=== PATIENT | male | born 1940 | race Caucasian/White ===

== ENCOUNTER → 2017-11-28 | Outpatient (CLI) | payer MEDICARE, OTHER ==
[~2017-11-28] MED LIST: ALPR.5 PO; AMIO200 PO; ATOR40TA PO; Amaryl1 MG; Aspir 8181 MG PO; CENTRUM SILVER1 EAC1 PO; CLOP75; CLOP75 PO; COLE1 PO; CYAN500 PO; DEXILANT30 MG; ESCI20 PO; ESOM20 PO; FARXIGA10 MG; GABA300 PO; HYDACE10B PO; HYOS0.375T PO; Janumet 50-5001 EACH PO; LEVSOD50 PO; LOSA50 PO; MAGOXI400 PO; MELA3 PO; METO25ER; METO50ER PO; NITR.4SL SL; Norco 5-325 Ta1 EACH PO; PYRI100 PO; ROSU10TA PO; TAMS.4ER; TAMS.4ER PO; TOCO400 PO
== END ==
LOC: PLD 13:49 → LAB SHORT 13:49
DX: D48.5 Neoplasm of uncertain behavior of skin (principal)
CPT/HCPCS: 88305

== ENCOUNTER → 2017-12-26 | Outpatient (CLI) | payer MEDICARE, OTHER | LOC: PLD → LAB SHORT | DX: D22.5 Melanocytic nevi of trunk (principal); C44.519 Basal cell carcinoma of skin of other part of trunk; C44.612 Basal cell carcinoma of skin of right upper limb, including shoulder; C44.319 Basal cell carcinoma of skin of other parts of face; C44.619 Basal cell carcinoma of skin of left upper limb, including shoulder | CPT/HCPCS: 88305 ==

== ENCOUNTER → 2018-03-06 | Outpatient (CLI) | payer MEDICARE, OTHER ==
[~2018-03-06] MED LIST changes: -Amaryl1 MG; -FARXIGA10 MG
== END ==
LOC: LAB SHORT 07:36 → PLD 07:36
DX: C44.02 Squamous cell carcinoma of skin of lip (principal)
CPT/HCPCS: 88305

== ENCOUNTER 2018-07-04 07:40 | Day surgery (SDC) | payer MEDICARE, OTHER ==
[~2018-07-04] VITALS: Ht 167.6 cm; Wt 96.3 kg
[2018-07-04] MEDS ORDERED: Amaryl1 MG (08:24)
[2018-07-04] MEDS ORDERED: FARXIGA10 MG (08:24)
== END 2018-07-04 09:52 | disposition home or self-care (01) ==
LOC: ORSCSDS 07:40
PROVIDERS: Internal Medicine Gastroenterology
PROC: 0D758ZZ Dilation of Esophagus, Via Natural or Artificial Opening Endoscopic (ICD-10-PCS; principal; 2018-07-04 09:00)
PROC: 0DB58ZX Excision of Esophagus, Via Natural or Artificial Opening Endoscopic, Diagnostic (ICD-10-PCS; principal; 2018-07-04 09:00)
DX: R13.14 Dysphagia, pharyngoesophageal phase (principal); K44.9 Diaphragmatic hernia without obstruction or gangrene; J32.0 Chronic maxillary sinusitis; I25.10 Atherosclerotic heart disease of native coronary artery without angina pectoris; I47.1 Supraventricular tachycardia; I10 Essential (primary) hypertension; I47.2 Ventricular tachycardia; F41.9 Anxiety disorder, unspecified; E11.9 Type 2 diabetes mellitus without complications; Z79.01 Long term (current) use of anticoagulants; G47.33 Obstructive sleep apnea (adult) (pediatric); E66.9 Obesity, unspecified; Z68.34 Body mass index [BMI] 34.0-34.9, adult; Z87.891 Personal history of nicotine dependence; Z79.84 Long term (current) use of oral hypoglycemic drugs; Z79.82 Long term (current) use of aspirin; Z79.899 Other long term (current) drug therapy
CPT/HCPCS: 82947; 87081; 88305

== ENCOUNTER → 2021-06-21 | Outpatient (CLI) | payer MEDICARE, OTHER ==
[~2021-06-21] MED LIST changes: +ALBU90OI INH; +Amaryl1 MG; +COLESTID1 G1 PO; +EUTHYROX50 MCG PO; +FARXIGA10 MG; +FARXIGA10 MG PO; +GLIM2 PO; +JANUMET 50-1,01 EACH PO; +MELATONIN1 M1 PO; +METO50ER; +Methocarbamol500 MG PO; +PANT40 PO; +TERB250 PO
[2021-06-21 11:53] LABS: BASOPHILS ABSOLUTE AUTO 0.02 K/mm3 (0.00-0.23); BASOPHILS PERCENT AUTO 0 % (0-2); EOSINOPHILS ABSOLUTE AUTO 0.03 K/mm3 (0.00-0.68); EOSINOPHILS PERCENT AUTO 1 % (0-6); Hematocrit 45.4 % (37.0-53.0); Hemoglobin 14.7 g/dL (13.5-17.5); IMMATURE GRAN ABSOLUTE AUTO 0.02 K/mm3 (0.00-0.10); IMMATURE GRAN PERCENT AUTO 0 % (0-1); LYMPHOCYTES ABSOLUTE AUTO 0.93 K/mm3 (0.84-5.20); LYMPHOCYTES PERCENT AUTO 17 % (21-46); MONOCYTES ABSOLUTE AUTO 0.49 K/mm3 (0.16-1.47); MONOCYTES PERCENT AUTO 9 % (4-13); Mean Corpuscular HGB 28.1 pg (26.0-34.0); Mean Corpuscular HGB Conc 32.4 g/dL (31.5-36.5); Mean Corpuscular Volume 87 fL (80-100); Mean Platelet Volume 11.6 fL (9.1-12.4); NEUTROPHILS ABSOLUTE AUTO 3.88 K/mm3 (1.96-9.15); NEUTROPHILS PERCENT AUTO 72 % (41-73); Platelet Count 196 K/mm3 (150-400); RDW Coefficient Variation 14.5 % (11.7-14.2); RDW Standard Deviation 46.1 fL (35.1-46.3); Red Blood Cell Count 5.24 M/mm3 (4.30-5.90); White Blood Cell Count 5.37 K/mm3 (4.00-11.30)
[2021-06-21 12:01] LABS: Alanine Aminotransfer (ALT/SGP 35 U/L (12-78); Albumin, Blood 3.8 g/dL (3.4-5.0); Alk Phos 74 U/L (40-126); Anion Gap 10 mmol/L (6-16); Aspartate Aminotrans (AST/SGOT 22 U/L (12-37); Bilirubin, Total 0.4 mg/dL (0.1-1.0); Blood Urea Nitrogen 13 mg/dL (8-24); Bun/Creatinine Ratio 12.3 (12.0-20.0); CO2, Blood 27 mmol/L (21-32); Calcium, Blood 8.7 mg/dL (8.5-10.1); Chloride, Blood 103 mmol/L (98-108); Creatinine, Blood 1.06 mg/dL (0.60-1.20); Globulin, Blood 3.9 g/dL (2.2-4.0); Glomerular Filtration Rate >60 (60-); Glucose, Blood 209 mg/dL (70-99); Potassium, Blood 4.1 mmol/L (3.5-5.5); Sodium, Blood 140 mmol/L (136-145); Total Protein, Blood 7.7 g/dL (6.4-8.2)
== END | disposition home or self-care (01) ==
LOC: LAB SHORT 11:44 → LAB 11:44
PROVIDERS: Physician Assistant
DX: R53.83 Other fatigue (principal)
CPT/HCPCS: 80053; 85025

== ENCOUNTER 2021-11-16 10:33 | Day surgery (SDC) | payer MEDICARE, OTHER ==
[~2021-11-16] VITALS: Ht 167.6 cm; Wt 88.4 kg
== END 2021-11-16 12:00 | disposition home or self-care (01) ==
LOC: ORSCSDS 10:33
PROVIDERS: Anesthesiology
PROC: 3E0R33Z Introduction of Anti-inflammatory into Spinal Canal, Percutaneous Approach (ICD-10-PCS; principal; 2021-11-16 11:30)
DX: M51.16 Intervertebral disc disorders with radiculopathy, lumbar region (principal); I25.10 Atherosclerotic heart disease of native coronary artery without angina pectoris; E11.9 Type 2 diabetes mellitus without complications; G47.33 Obstructive sleep apnea (adult) (pediatric); E78.00 Pure hypercholesterolemia, unspecified; Z79.82 Long term (current) use of aspirin; Z79.84 Long term (current) use of oral hypoglycemic drugs; Z79.899 Other long term (current) drug therapy
CPT/HCPCS: J1040

== ENCOUNTER 2021-12-31 11:51 | Day surgery (SDC) | payer MEDICARE, OTHER ==
[~2021-12-31] VITALS: Ht 167.6 cm; Wt 89.3 kg
[~2021-12-31 11:51] MED LIST changes: +Percocet 5-3251 EACH PO
[2021-12-31] MEDS ORDERED: HYDROCODONE-AC1 EAC7 (12:36)
--- NOTE | 2021-12-31 13:59 | NUR ---
12/31/21 BRIELLE PATTEN UPPER ENDOSCOPY CANCELLED, TO CONT WITH COLONOSCOPY TAKING ONLY SMALL POLYPS DT PT NOT HOLDING PLAVIX.
== END 2021-12-31 14:59 | disposition home or self-care (01) ==
LOC: ORSCSDS 11:51
PROVIDERS: Internal Medicine Gastroenterology
PROC: 0DBN8ZX Excision of Sigmoid Colon, Via Natural or Artificial Opening Endoscopic, Diagnostic (ICD-10-PCS; principal; 2021-12-31 13:15)
PROC: 0DBM8ZX Excision of Descending Colon, Via Natural or Artificial Opening Endoscopic, Diagnostic (ICD-10-PCS; principal; 2021-12-31 13:15)
DX: K58.0 Irritable bowel syndrome with diarrhea (principal); Z86.010 Personal history of colon polyps; D12.4 Benign neoplasm of descending colon; D12.5 Benign neoplasm of sigmoid colon; K57.30 Diverticulosis of large intestine without perforation or abscess without bleeding; E11.9 Type 2 diabetes mellitus without complications; I25.10 Atherosclerotic heart disease of native coronary artery without angina pectoris; F41.9 Anxiety disorder, unspecified; G47.33 Obstructive sleep apnea (adult) (pediatric); Z87.891 Personal history of nicotine dependence; Z79.899 Other long term (current) drug therapy; E78.00 Pure hypercholesterolemia, unspecified; Z79.02 Long term (current) use of antithrombotics/antiplatelets; I10 Essential (primary) hypertension; Z79.01 Long term (current) use of anticoagulants; E03.9 Hypothyroidism, unspecified
CPT/HCPCS: 82947; 88305; J2704; J7120

== ENCOUNTER → 2025-02-16 | Outpatient (CLI) | payer MEDICARE, OTHER ==
[~2025-02-16] MED LIST changes: +HYDROCODONE-AC1 EAC7
== END ==
LOC: LAB 14:27 → LAB SHORT 14:27
DX: N39.0 Urinary tract infection, site not specified (principal)
CPT/HCPCS: 87086

== ENCOUNTER → 2025-02-26 | Outpatient (CLI) | payer MEDICARE, OTHER ==
[2025-02-26 15:13] LABS: Source, Urine Clean Catch
[2025-02-26 18:13] LABS: Appearance, Urine Clear (Clear); Bilirubin, Urine Neg (Neg); Blood, Urine 2+ (Neg); Color, Urine Yellow (P-Yellow); Glucose Qualitative, Urine Neg (Neg); Ketones, Urine Neg (Neg); Leukocyte Esterase, Urine 1+ (Neg); Nitrite, Urine Neg (Neg); Protein, Urine 1+ (Neg); Urobilinogen, Urine NORM (Normal)
[2025-02-26 19:02] LABS: Hyaline Casts 0-2 /lpf (0-2)
[2025-02-26 19:03] LABS: Bacteria Few /hpf; Red Blood Cells, Urine 0-2 /hpf (0-2); Squamous Epithelial Cells Rare /hpf (Few)
== END | disposition home or self-care (01) ==
LOC: LAB SHORT 15:12 → LAB 15:12
PROVIDERS: Hospitalist
DX: N39.0 Urinary tract infection, site not specified (principal)
CPT/HCPCS: 81001; 87086

== ENCOUNTER 2025-06-30 08:24 | Day surgery (SDC) | payer MEDICARE, OTHER ==
[~2025-06-30] VITALS: Ht 167.6 cm; Wt 74.0 kg
[2025-06-30] MEDS ORDERED: MIRT15ST (09:15)
[2025-06-30] MEDS ORDERED: Inderal80 MG (09:15)
[2025-06-30] MEDS ORDERED: ALEVAZOL56.7 G1 (09:16)
[2025-06-30] MEDS ORDERED: KETO15TC (09:19)
[2025-06-30] MEDS ORDERED: PRIM250 (09:19)
[2025-06-30 10:59] VITALS: BP 121/64
== END 2025-06-30 11:01 | disposition home or self-care (01) ==
LOC: ORSCSDS 08:24
PROVIDERS: Internal Medicine Gastroenterology
PROC: 0DBL8ZX Excision of Transverse Colon, Via Natural or Artificial Opening Endoscopic, Diagnostic (ICD-10-PCS; principal; 2025-06-30 10:30)
PROC: 0DBE8ZX Excision of Large Intestine, Via Natural or Artificial Opening Endoscopic, Diagnostic (ICD-10-PCS; principal; 2025-06-30 10:30)
PROC: 0DJ08ZZ Inspection of Upper Intestinal Tract, Via Natural or Artificial Opening Endoscopic (ICD-10-PCS; principal; 2025-06-30 10:30)
DX: R19.7 Diarrhea, unspecified (principal); R13.10 Dysphagia, unspecified; Z86.0100 Personal history of colon polyps, unspecified; D12.3 Benign neoplasm of transverse colon; K63.5 Polyp of colon; K57.30 Diverticulosis of large intestine without perforation or abscess without bleeding; E11.9 Type 2 diabetes mellitus without complications; G47.33 Obstructive sleep apnea (adult) (pediatric); Z79.01 Long term (current) use of anticoagulants; Z79.84 Long term (current) use of oral hypoglycemic drugs; Z79.899 Other long term (current) drug therapy; Z79.02 Long term (current) use of antithrombotics/antiplatelets; E07.9 Disorder of thyroid, unspecified; F41.9 Anxiety disorder, unspecified; Z86.718 Personal history of other venous thrombosis and embolism; Z87.891 Personal history of nicotine dependence
CPT/HCPCS: 82947; 88305; J2704; J7120

== ENCOUNTER 2025-10-07 01:08 | Inpatient (IN) | payer MEDICARE, OTHER ==
[~2025-10-07] VITALS: Ht 170.2 cm; Wt 86.0 kg
[2025-10-07] VITALS (15 sets, daily range): BP systolic 96–147; BP diastolic 63–112
[~2025-10-07 01:08] MED LIST changes: +ALEVAZOL56.7 G1; +Inderal80 MG; +KETO15TC; +MIRT15ST; +PRIM250 PO
[2025-10-07 01:34] LABS: BASOPHILS ABSOLUTE AUTO 0.08 K/mm3 (0.00-0.23); BASOPHILS PERCENT AUTO 1 % (0-2); EOSINOPHILS ABSOLUTE AUTO 0.37 K/mm3 (0.00-0.68); EOSINOPHILS PERCENT AUTO 5 % (0-6); Hematocrit 39.3 % (37.0-53.0); Hemoglobin 13.1 g/dL (13.5-17.5); IMMATURE GRAN ABSOLUTE AUTO 0.02 K/mm3 (0.00-0.10); IMMATURE GRAN PERCENT AUTO 0 % (0-1); LYMPHOCYTES ABSOLUTE AUTO 2.47 K/mm3 (0.84-5.20); LYMPHOCYTES PERCENT AUTO 35 % (21-46); MONOCYTES ABSOLUTE AUTO 0.83 K/mm3 (0.16-1.47); MONOCYTES PERCENT AUTO 12 % (4-13); Mean Corpuscular HGB Conc 33.3 g/dL (31.5-36.5); Mean Corpuscular Volume 90 fL (80-100); NEUTROPHILS ABSOLUTE AUTO 3.32 K/mm3 (1.96-9.15); NEUTROPHILS PERCENT AUTO 47 % (41-73); NRBC ABSOLUTE 0.00 K/mm3 (0.00-0.02); NRBC Auto 0.0 /100 WBC (0.0-0.2); Platelet Count 251 K/mm3 (150-400); RDW Coefficient Variation 13.5 % (11.7-14.2); RDW Standard Deviation 44.5 fL (35.1-46.3)
[2025-10-07 01:47] LABS: Alanine Aminotransfer (ALT/SGP 86.0 U/L (12-78); Albumin, Blood 3.5 g/dL (3.4-5.0); Albumin/Globulin Ratio 1.1 (0.8-1.8); Anion Gap 11.0 mmol/L (3-11); Aspartate Aminotrans (AST/SGOT 49.0 U/L (12-37); Bilirubin, Total 0.2 mg/dL (0.1-1.0); Blood Urea Nitrogen 16.0 mg/dL (8-24); CO2, Blood 22.0 mmol/L (21-32); Calcium, Blood 8.5 mg/dL (8.5-10.1); Chloride, Blood 107.0 mmol/L (98-108); Creatinine, Blood 0.78 mg/dL (0.60-1.20); Globulin, Blood 3.1 g/dL (2.2-4.0); Glucose, Blood 111.0 mg/dL (70-99); Potassium, Blood 4.2 mmol/L (3.5-5.5); Sodium, Blood 136.0 mmol/L (136-145); Total Protein, Blood 6.6 g/dL (6.4-8.2)
[2025-10-07] MEDS ORDERED: FLU VACC TS2025(65UP)/MF59C/PF 45 MCG/0.5 ML SYRINGE IM SCH (04:20)
--- NOTE | 2025-10-07 06:48 | NUR ---
0515 RECEIVED REPORT FROM JUS WILLIAM. PT ARRIVED TO MEDICAL FLOOR AT 0600. PT IS ALERT AND ORIENTED X 4. ABLE TO MAKE NEEDS KNOWN. ON ROOM AIR, ALTHOUGH REPORT FROM ER INDICATED HE DOES BECOME SLIGHTLY APNIC WHEN ASLEEP. ROOM AIR AT BASELINE. PT PRESENTED TO ER WITH COMPLAINTS OF CHEST PAIN. INITIAL TROPONIN ON ARRIVAL WAS 18 AND FOLLOW UP TROPONIN WAS 112. CURRENTLY PT DENIES CHEST PAIN OR ANY DISCOMFORT RELATING. PT IS 1 PERSON ASSIST TO THE BATHROOM. HE HAS HX OF ETOH USE, LAST DRINK WAS AROUND 1800 ON 07/07/25 ([facility] DR[facility]). HE REPORTS HE DRINKS APPROX WEEKLY. PT IS ON TELE IN SINUS RHYTHM. DIET IS NPO. LAC PIV IS PATENT AND SALINE LOCKED. VSS. CALL LIGHT IN REACH. WILL PASS ON REPORT TO DAY SHIFT RN.
[2025-10-07] MEDS ORDERED: Enoxaparin 40 MG/0.4 ML SYR SC SCH (09:00)
[2025-10-07 09:51] LABS: Prothrombin Time Results 11.3 Sec (9.7-11.5)
[2025-10-07] MEDS ORDERED: Dose Adjust by Pharmacy XX STA (10:14)
[2025-10-07] MEDS ORDERED: Heparin Sodium,Porcine/0.5 NS 500 ML IV SCH (10:15)
[2025-10-07] MEDS ORDERED: MIRT15 PO (10:58)
[2025-10-07] MEDS ORDERED: GABA300 PO ×2 (11:00→12:13)
[2025-10-07] MEDS ORDERED: METO50ER PO (11:02)
[2025-10-07] MEDS ORDERED: COLESTID1 G1 PO (12:16)
[2025-10-07] MEDS ORDERED: PRIM250 PO (12:17)
[2025-10-07] MEDS ORDERED: Verapamil HCL 2.5 MG/ML 2ML Injection ONE (13:40)
[2025-10-07] MEDS ORDERED: NS 250 ML IV ONE (13:40)
[2025-10-07] MEDS ORDERED: Heparin Sodium 1000 Units/ML 10ML MDV ONE ×3 (13:40→16:28)
[2025-10-07] MEDS ORDERED: NS 1,000 ML IV ONE ×2 (13:40→13:51)
[2025-10-07] MEDS ORDERED: Nitroglycerin 2 MG/20 ML BTL ONE (13:40)
[2025-10-07] MEDS ORDERED: FentaNYL Citrate 50 MCG/ML 2 ML Injection ONE (13:51)
[2025-10-07] MEDS ORDERED: Midazolam HCl 1MG / ML 2ML Vial ONE ×2 (13:51→16:32)
--- NOTE | 2025-10-07 14:27 | NUR ---
TRANSFER NOTE PT TO ANGIO PROCEDURE AT APPROX 1355. PT A&OX4, VSS, AMB W/ ASSIST, VOIDING, AND DENIED PAIN. HEP DRIP PAUSED AND PHARMACY NOTIFIED. BELONGINGS WERE GIVEN TO FAMILY AT BEDSIDE AND INFORMED OF PLAN AND TRANSFER TO PCU 14 AFTER PROCEDURE. THIS RN GAVE REPORT TO STEWART ARREGUIN.
[2025-10-07] MEDS ORDERED: NS 500 ML IV ONE ×2 (15:49→16:28)
[2025-10-07] MEDS ORDERED: Amiodarone HCl 50 MG / ML 3 ML Amp ONE (16:28)
[2025-10-07] MEDS ORDERED: Furosemide 10 MG / ML 2ML Vial ONE (16:39)
--- NOTE | 2025-10-07 18:08 | NUR ---
ASSUMPTION OF CARE RECEIVED PT AT 1710. PT A&OX4, USES CALL LIGHT AND MAKES NEEDS KNOWN. PT IN NSR, HR IN 70-80S, MAP >65, SBP IN 130S. PT DENIES CHEST PAIN/PRESSURE. PT HAS TWO TR BANDS IN PLACE ON RIGHT WRIST ON RADIAL INCISION. CAP REFILL AND CIRCULATION ASSESSED IN RUE. RIGHT HAND BELOW TR BANDS DUSKY AND COOL. PT DENIES NUMBNESS/TINGLING/WEAKNESS/PAIN IN RUE. SPO2 MONITOR ON RIGHT THUMB, GOOD SPO2 WAVEFORM SEEN ON MONITOR. DEFLATION SCHEDULED AT 1900 D/T ACT >200. PT HAS PIV ON LEFT HAND. PT ON RA, SPO2 >94%. PT DENIES SOB/INCREASED WOB. PT DENIES ABD PAIN. BOWEL SOUNDS HYPERACTIVE. PT VOIDED 300MLS INTO URINAL. PT HAS SCDS IN PLACE AND CALL LIGHT WITHIN REACH WITH NO NEEDS EXPRESSED AT THIS TIME. DAUGHTER AT BEDSIDE.
--- NOTE | 2025-10-07 20:21 | NUR ---
ASSUMPTION OF CARE: ASSUMED CARE OF PT AT 1900. PT ALERT AND ORIENTED, FOLLOWS DIRECTION AND MAKES NEEDS KNOWN. PT ABLE TO AMBULATE TO THE BATHROOM WITH WALKER AND SBA FOR CORD MANAGEMENT. DENIES CP WITH ACTIVITY AND AT REST. SBP 110-140'S. ON FACILITIES MAINTENANCE ASSISTANT IN SR 70-80'S WITH SOME MILD ST ELEVATION, DR. CANTRELL AWARE REPORTED FROM DAYSHIFT RN. PT ON RA WITH SPO2 >94% DENIES SOB. VOIDS INTO URINAL NEEDED. ABLE TO MOVE IN BED. TWO TR BANDS TO RIGHT RADIAL IN PLACE, CURRENTLY DEFLATING. NO OOZING OR BLEEDING NOTED. ARMBOARD IN PLACE. PT HAS GOOD SENSATION AND PLETH NOTED. MILD PETECHIAE ON FINGERS AND WRIST, NOTED ON DAYSHIFT WELL. PIV TO LH INTACT. TOLERATING PO INTAKE. PT ABLE TO HAVE BM THIS SHIFT. BED LOCKED, CALL LIGHT IN REACH.
--- NOTE | 2025-10-07 23:31 | NUR ---
UPDATE: PT TR BANDS TO RIGHT RADIAL BOTH RECOVERED WELL AND REMOVED AT 2315. TEGADERMS IN PLACE WITH NO BLEEDING OR OOZING NOTED. ARMBOARD IN PLACE. PT CONTINUES TO HAVE PETECHIAL RASH TO RIGHT WRIST AND FINGERS. PT HAS GOOD SENSATION IN FINGERS AND GOOD O2 PLETH. NO C/O CHEST PAIN/PRESSURE.
[2025-10-08] VITALS (14 sets, daily range): BP systolic 96–161; BP diastolic 72–115
[2025-10-08 03:36] LABS: BASOPHILS ABSOLUTE AUTO 0.06 K/mm3 (0.00-0.23); BASOPHILS PERCENT AUTO 1 % (0-2); EOSINOPHILS ABSOLUTE AUTO 0.36 K/mm3 (0.00-0.68); EOSINOPHILS PERCENT AUTO 5 % (0-6); Hematocrit 39.3 % (37.0-53.0); Hemoglobin 13.0 g/dL (13.5-17.5); IMMATURE GRAN ABSOLUTE AUTO 0.02 K/mm3 (0.00-0.10); IMMATURE GRAN PERCENT AUTO 0 % (0-1); LYMPHOCYTES ABSOLUTE AUTO 1.89 K/mm3 (0.84-5.20); LYMPHOCYTES PERCENT AUTO 26 % (21-46); MONOCYTES ABSOLUTE AUTO 0.78 K/mm3 (0.16-1.47); MONOCYTES PERCENT AUTO 11 % (4-13); Mean Corpuscular HGB Conc 33.1 g/dL (31.5-36.5); Mean Corpuscular Volume 91 fL (80-100); NEUTROPHILS ABSOLUTE AUTO 4.08 K/mm3 (1.96-9.15); NEUTROPHILS PERCENT AUTO 57 % (41-73); NRBC ABSOLUTE 0.00 K/mm3 (0.00-0.02); NRBC Auto 0.0 /100 WBC (0.0-0.2); Platelet Count 250 K/mm3 (150-400); RDW Coefficient Variation 13.8 % (11.7-14.2); RDW Standard Deviation 46.7 fL (35.1-46.3)
[2025-10-08 03:53] LABS: Anion Gap 7.0 mmol/L (3-11); Blood Urea Nitrogen 12.0 mg/dL (8-24); CO2, Blood 27.0 mmol/L (21-32); Calcium, Blood 8.4 mg/dL (8.5-10.1); Chloride, Blood 108.0 mmol/L (98-108); Creatinine, Blood 0.67 mg/dL (0.60-1.20); Glucose, Blood 123.0 mg/dL (70-99); Potassium, Blood 4.1 mmol/L (3.5-5.5); Sodium, Blood 138.0 mmol/L (136-145)
--- NOTE | 2025-10-08 05:07 | NUR ---
SHIFT SUMMARY: PT C/O ANXIETY THIS AM. "STATES HE IS ABOUT TO SPIRAL". CALL PLACED TO DR. JACOBS, ONE TIME ORDER FOR PO ATIVAN RECIEVED AND GIVEN TO PT. PT ABLE TO REST OFF AND ON T/O THE SHIFT, ALTHOUGH MINIMAL. REMAINS ALERT AND ORIENTED WITH BOUTS OF CONFUSION AT TIMES. EASILY REORIENTED. 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 HR 80'S. SBP 130'S. DENIES CP T/O THE SHIFT. TR BAND SITES TO RIGHT RADIAL REMAIN FREE FROM BLEEDING OR OOZING. ARMBOARD IN PLACE. REMAINS ON RA THIS SHIFT. SPO2 MID 90'S. DENIES SOB. LH PIV INTACT. USING URINAL IND WITH MODERATE AMOUNT OF YELLOW URINE THIS SHIFT. PT ABLE TO HAVE A BM THIS SHIFT. TOLERATING PO INTAKE. BED LOCKED, CALL LIGHT IN REACH.
--- NOTE | 2025-10-08 08:28 | NUR ---
ASSUMED CARE NOTE: ASSUMED CARE OF PT AT 0700, PT IS ALERT AND ORIENTED X 4, ABLE TO COMMUNICATE NEEDS, DENIES PAIN. PT IN SR TO ST WITH HR BETWEEN 90-110, SBP 160'S. PT DENIES CHEST PAIN. PT ON RA WITH SPO2 ABOVE 95% NO RESP DISTRESS NOTED. R RADIAL SITE IS FREE FROM OZZING, SLIGHT BRUSING TO SITE. LAST BM THIS AM, PT CONTINENT. PT TOLERATING PO INTAKE WITHOUT COMPLICATIONS. PT UP TO CHAIR FOR BREAKFEST. PLAN OF CARE ONGOING.
--- NOTE | 2025-10-08 18:38 | NUR ---
SHIFT SUMMARY: PT CONTINUES TO BE ALERT AND ORIENTED X 4, ABLE TO FOLLOW COMMANDS AND COMMUNICATE NEEDS. PT DENIES ANY PAIN. PT IN SR WITH HR IN 70'S- 90'S AT REST, IN ST WITH HR 100-110 WITH ACTIVITY, BP STABLE. PT ON RA WITH SPO2 ABOVE 92% NO RESP DISTRESS NOTED. PT USING URINAL AT BEDSIDE IND. PT TOLERATING PO INTAKE W/O COMPLICATIONS, LAST BM 10/07. PT HAS URGENCY WITH VOIDING, CAN BE IMPULSIVE AND ATTEMPTS TO GET OUT OF BED WITHOUT ASSISTANCE. PT EDUCATED ON FALL RISK, BED ALARM PLACED. PT UP TO CHAIR FOR MEALS WITH 1 PERSON ASSIST, FWW. R RADIAL SITE FREE FROM OOZING;SLIGHT BRUSING NOTED TO SITE, PETECHIAL RASH NOTED BELOW SITE. PLAN OF CARE ONGOING, CALL LIGHT WITHIN REACH.
[2025-10-08] MEDS ORDERED: Vasopressin 20 UNITS in NS 100 ML IV SCH (19:00)
--- NOTE | 2025-10-08 20:43 | NUR ---
ASSUMPTION OF CARE: ASSUMED CARE AT START OF SHIFT (1899). REPORT RECEIVED FROM DAY SHIFT RN. PT IS DOING WELL AND RESTING IN BED. PT IS ALERT AND FOLLOWING COMMANDS. PT DENIES HAVING ANY PAIN, CP, OR SOB AT THIS TIME. LUNG SOUNDS ARE CLEAR AND EQUAL BILATERALLY, ON RA WITH SPO2 >95%. SINUS RYTHM WITH SBP: 90-100'S MAP >65 HR: 70'S. IV: PERIPHERAL IN L WRIST. BOARD ON R ARM WHERE PREVIOUS TR-BAND WAS, INCERSTION SITE IS SLIGHTLY SWOLLEN AND THERE IS SOME PETECHIAE NOTED BELOW THE SITE, DR IS AWARE. PT IS ABLE TO AMBULATE WITH WALKER. CORDS PLACED OUT OF REACH. CALL LIGHT PLACED WITHIN REACH.
[2025-10-08] MEDS ORDERED: Sacubitril/Valsartan 49 MG/51 MG Tab PO SCH (21:00)
[2025-10-09] VITALS (11 sets, daily range): BP systolic 102–133; BP diastolic 52–78
--- NOTE | 2025-10-09 06:36 | NUR ---
SHIFT SUMMARY: PT IS DOING WELL AND RESTING IN BED. NO ACUTE CHANGED THROUGHOUT THE SHIFT. PT WAS ABLE TO SLEEP PART OF THE NIGHT. VITAL SIGNS REMAIN STABLE. PRIOR TO SHIFT CHANGE PT STATED THAT THEY WERE FEELING SOB AND HAD AUDIBLE WHEEZZING. PT RECEIVED A BREATHING TREATMENT WHICH HELPED IMPROVE THEIR BREATHING. IV: PICC LINE IN RUE. BUENO CATHETER IN PLACE AND DRAINING TO GRAVITY. LINES AND CORDS PLACED OUT OF REACH. CALL LIGHT PLACED WITHIN REACH.
--- NOTE | 2025-10-09 06:48 | NUR ---
SHIFT SUMMARY: PT IS DOING WELL AND RESTING IN BED. NO ACUTE CHANGES THROUGHOUT THE SHIFT. VITAL SIGNS REMAIN STABLE. PT WAS ABLE TO SLEEP MOST OF THE NIGHT. PT DENIES ANY PAIN, CP, OR SOB. PT ABLE TO STAND AND AMBULATE WITH WALKER. LINES AND CORDS PLACED OUT OF REACH. CALL LIGHT PLACED WITHIN REACH.
[2025-10-09] MEDS ORDERED: ASPI81CH PO (12:06)
[2025-10-09] MEDS ORDERED: NITR.4SL SL (12:07)
[2025-10-09] MEDS ORDERED: ENTRESTO 24 MG1 EAC3 PO (12:09)
[2025-10-09] MEDS ORDERED: SPIR25 PO (12:10)
[2025-10-09] MEDS ORDERED: JARDIANCE10 MG PO (13:00)
[2025-10-09] MEDS ORDERED: METF500 PO (13:00)
--- NOTE | 2025-10-09 14:13 | NUR ---
DISCHARGE SUMMARY NEURO: ALERT AND ORIENTED X4, FORGETFUL. +TREMORS BUE/BLE- HIS BASELINES. COG WHEEL GAIT. USES WALKER WITH 1 SBA. CARDIAC: SR, RBB. SBP: 90-120S, HR 60-70S. S/P PCI EDUCATION, SITE CARE, MEDICATIONS, CARDIAC DIET AND FOLLOW UP RECOMMENDATIONS. REFERRAL PLACED FOR CARDIAC REHAB- FAXED. PULM: LUNGS CLEAR ON RA, SOME NOTED SLEEP APNEA DURING HS, 2 LPM AT HS. GI: BM X 2 TODAY, ABDOMEN IS SOFT/NON TENDER : YELLOW, UOP X3 TODAY UNMEASURED/ SKIN, INTACT. POST PCI R RADIAL SITE X2. DRESSINGS GAUZE COVERED WITH TEGADERM C/D/I OK TO REPLACE WITH BANDAID PRN. SITE APPEARS SLIGHTLY PUFFY BUT SOFT TO PALPATION, PT DENIES ANY PAIN. RECOMMENDED NON USE FOR THE NEXT 48 HRS. SENT WITH BRACE STILL IN PLACE TO DISCOURAGE USE. DAUGHTER KRISTY GIVEN DISCHARGE INSTRUCTIONS OVER THE PHONE. EYAL REYES AT BEDSIDE AND PROVIDED DISCHARGE INSTRUCTIONS. PT DISCHARGE TO HOME, TRANSPORTED TO PRIVATE VEHICLE [place] AT 1441.
== END 2025-10-09 13:41 | disposition home or self-care (01) | DRG 322 ==
LOC: ER 01:08 → ERHOLD 01:09 → MEDS 01:09 → PCU 14:34 → ICUE 16:27
PROVIDERS: Emergency Medicine; Family Medicine; ADMIT Student in an Organized Health Care Education/Training Program
PROC: 027135Z Dilation of Coronary Artery, Two Arteries with Two Drug-eluting Intraluminal Devices, Percutaneous Approach (ICD-10-PCS; principal; 2025-10-07)
PROC: 4A023N7 Measurement of Cardiac Sampling and Pressure, Left Heart, Percutaneous Approach (ICD-10-PCS; 2025-10-07)
PROC: B2111ZZ Fluoroscopy of Multiple Coronary Arteries using Low Osmolar Contrast (ICD-10-PCS; 2025-10-07)
PROC: B241ZZ3 Ultrasonography of Multiple Coronary Arteries, Intravascular (ICD-10-PCS; 2025-10-07)
PROC: 3E02340 Introduction of Influenza Vaccine into Muscle, Percutaneous Approach (ICD-10-PCS; 2025-10-07)
PROC: 3E053XZ Introduction of Vasopressor into Peripheral Artery, Percutaneous Approach (ICD-10-PCS; 2025-10-08)
DX: I21.4 Non-ST elevation (NSTEMI) myocardial infarction (principal); I50.22 Chronic systolic (congestive) heart failure; K21.9 Gastro-esophageal reflux disease without esophagitis; I25.10 Atherosclerotic heart disease of native coronary artery without angina pectoris; E03.9 Hypothyroidism, unspecified; G47.33 Obstructive sleep apnea (adult) (pediatric); R74.01 Elevation of levels of liver transaminase levels; E78.2 Mixed hyperlipidemia; I44.7 Left bundle-branch block, unspecified; I11.0 Hypertensive heart disease with heart failure; G25.0 Essential tremor; F41.0 Panic disorder [episodic paroxysmal anxiety]; I25.5 Ischemic cardiomyopathy; E11.42 Type 2 diabetes mellitus with diabetic polyneuropathy; Z23 Encounter for immunization; Z79.84 Long term (current) use of oral hypoglycemic drugs; Z79.899 Other long term (current) drug therapy; Z90.49 Acquired absence of other specified parts of digestive tract; Z86.79 Personal history of other diseases of the circulatory system; Z79.890 Hormone replacement therapy; Z90.89 Acquired absence of other organs; Z98.890 Other specified postprocedural states; Z98.41 Cataract extraction status, right eye; Z98.42 Cataract extraction status, left eye; Z87.891 Personal history of nicotine dependence; Z95.5 Presence of coronary angioplasty implant and graft; Z68.29 Body mass index [BMI] 29.0-29.9, adult
CPT/HCPCS: 36415; 71045; 76937; 80048; 80053; 83880; 84484; 85025; 85347; 85379; 85610; 85730; 92978; 93005; 93010; 93458; 94760; 96372; 96374; 99152; 99153; 99285-25; A9270; C1725; C1753; C1769; C1874; C1887; C1894; C8929; C9600; C9601; G0378; J0282; J1644; J1650; J1938; J2250; J3010; J7030; J7040; J7050; Q9957; Q9967